=== PATIENT | male | born 1965 | race Caucasian/White ===

== ENCOUNTER → 2016-05-27 | Outpatient (CLI) | payer OTHER ==
[~2016-05-27] MED LIST: BYDUREON P2 MG/0.65 SQ; GLUCOPHAGE1000 MG PO; LANTUS100 UNIT/1 SQ; LISINOPRIL20 MG PO; MOBIC7.5 MG PO; SILDENAFIL20 MG PO; TRAMADOL HCL50 MG PO; TRAZODONE HCL50 MG PO
== END ==
LOC: LAB 12:23
DX: R53.83 Other fatigue (principal)
CPT/HCPCS: 84403

== ENCOUNTER 2016-06-21 08:56 | Observation (INO) | payer OTHER ==
[~2016-06-21] VITALS: Ht 198.1 cm; Wt 136.1 kg
[2016-06-21 09:59] LABS: HEMOGLOBIN 13.6 gm/dl (14.0-17.5); RED BLOOD COUNT 4.71 M/UL (4.20-5.50); WHITE BLOOD COUNT 12.3 K/UL (4.5-11.0)
[2016-06-21] MEDS ORDERED: LISINOPRIL20 MG PO (16:12)
[2016-06-21] MEDS ORDERED: SILDENAFIL20 MG PO (16:12)
[2016-06-21] MEDS ORDERED: TRAZODONE HCL50 MG PO ×2 (16:15→16:17)
[2016-06-21] MEDS ORDERED: BYDUREON P2 MG/0.65 SQ (16:18)
[2016-06-21] MEDS ORDERED: TRAMADOL HCL50 MG PO (16:19)
[2016-06-21] MEDS ORDERED: LANTUS100 UNIT/1 SQ (16:21)
[2016-06-22 05:00] LABS: HEMOGLOBIN 12.6 gm/dl (14.0-17.5); RED BLOOD COUNT 4.41 M/UL (4.20-5.50)
[2016-06-22 05:05] LABS: WHITE BLOOD COUNT 8.6 K/UL (4.5-11.0)
[2016-06-22 05:10] LABS: BUN/CREATININE RATIO 34 (0-10)
[2016-06-22] MEDS ORDERED: MOBIC7.5 MG PO (10:48)
[2016-06-22] MEDS ORDERED: GLUCOPHAGE1000 MG PO (10:54)
== END 2016-06-22 12:02 | disposition home or self-care (01) ==
LOC: ER1 08:56 → ZEROF 12:15 → MED SURG 4 12:15
PROVIDERS: Emergency Medicine; Physician Assistant; ADMIT Internal Medicine
DX: N17.9 Acute kidney failure, unspecified (principal); R19.7 Diarrhea, unspecified; R11.2 Nausea with vomiting, unspecified; E86.0 Dehydration; E11.9 Type 2 diabetes mellitus without complications; I10 Essential (primary) hypertension; K58.9 Irritable bowel syndrome, unspecified; E66.9 Obesity, unspecified; R31.29 Other microscopic hematuria; E87.2 Acidosis; Z87.442 Personal history of urinary calculi; Z79.899 Other long term (current) drug therapy
CPT/HCPCS: 36415; 80048; 80053; 81001; 82962; 83036; 83690; 83735; 85025; 85027; 87040; 96361; 96374; 99284; G0378; J2405; J7030

== ENCOUNTER 2016-06-27 20:40 | Emergency (ER) | payer OTHER ==
[2016-06-27 22:00] LABS: RED BLOOD COUNT 5.11 M/UL (4.20-5.50); WHITE BLOOD COUNT 15.1 K/UL (4.5-11.0)
[2016-06-27 22:01] LABS: HEMOGLOBIN 14.9 gm/dl (14.0-17.5)
== END 2016-06-28 02:30 | disposition home or self-care (01) ==
LOC: ER1 20:40
PROVIDERS: Family Medicine
DX: E86.0 Dehydration (principal); E11.65 Type 2 diabetes mellitus with hyperglycemia; R11.2 Nausea with vomiting, unspecified; Z91.041 Radiographic dye allergy status; Z79.84 Long term (current) use of oral hypoglycemic drugs; Z79.4 Long term (current) use of insulin; Z79.899 Other long term (current) drug therapy
CPT/HCPCS: 36415; 80053; 81001; 82150; 82962; 83690; 85025; 96374; 99284; J2405

== ENCOUNTER → 2020-09-22 | Outpatient (CLI) | payer OTHER ==
[~2020-09-22] MED LIST changes: +VIBRAMYCIN100 MG PO
== END ==
LOC: KOH-I 13:03
DX: J20.9 Acute bronchitis, unspecified (principal); R05 Cough; R91.8 Other nonspecific abnormal finding of lung field
CPT/HCPCS: 71046

== ENCOUNTER → 2020-09-30 | Outpatient (CLI) | payer OTHER | LOC: KOH-I 09:50 | DX: R93.89 Abnormal findings on diagnostic imaging of other specified body structures (principal) | CPT/HCPCS: 71046 ==

== ENCOUNTER 2021-08-09 17:05 | Emergency (ER) | payer BC | END 2021-08-09 23:18 | disposition left against medical advice (07) | LOC: ER1 17:05 | DX: L02.211 Cutaneous abscess of abdominal wall (principal); E11.9 Type 2 diabetes mellitus without complications; I10 Essential (primary) hypertension; Z91.041 Radiographic dye allergy status | CPT/HCPCS: 99281 ==

== ENCOUNTER → 2021-08-30 | Outpatient (CLI) | payer OTHER | LOC: KOH-I 14:24 | DX: J20.9 Acute bronchitis, unspecified (principal); R06.2 Wheezing; R53.83 Other fatigue | CPT/HCPCS: 71046 ==